=== PATIENT | male | born 1980 | race Caucasian/White ===

== ENCOUNTER 2020-01-25 19:20 | Emergency (ER) | payer OTHER ==
[~2020-01-25] VITALS: Ht 177.8 cm; Wt 77.1 kg
[2020-01-25 19:25] VITALS: Ht 177.8 cm; Wt 77.1 kg
[2020-01-25 20:37] VITALS: BP 142/97
== END 2020-01-25 20:37 | disposition other institution (70) ==
LOC: ED 19:20
DX: I10 Essential (primary) hypertension (principal); F15.10 Other stimulant abuse, uncomplicated; Z13.9 Encounter for screening, unspecified; Z98.890 Other specified postprocedural states

== ENCOUNTER 2020-01-25 19:20 | Emergency (ER) | payer OTHER | END 2020-01-25 20:37 | disposition other institution (70) | LOC: ED 19:20 | DX: Z02.89 Encounter for other administrative examinations (principal) ==

== ENCOUNTER 2020-01-29 12:22 | Emergency (ER) | payer OTHER ==
[~2020-01-29] VITALS: Ht 170.2 cm; Wt 65.8 kg
[2020-01-29 13:16] VITALS: Ht 170.2 cm; Wt 65.8 kg
[2020-01-29 13:47] LABS: BASOPHIL % 0.8 % (0-2); PLATELET COUNT 331 x10^3mcL (130-400); RED CELL DISTRIBUTION WIDTH 13.4 % (11.5-14.5)
[2020-01-29 14:01] LABS: CARBON DIOXIDE 22.8 mmol/L (21-32); CHLORIDE SERUM 104 mmol/L (98-107); CREATININE SERUM 0.9 mg/dL (0.7-1.3); GFR1 > 60 mL/min; GLUCOSE SERUM 88 mg/dL (74-106); POTASSIUM SERUM 3.3 mmol/L (3.5-5.1); SODIUM SERUM 138 mmol/L (136-145)
[2020-01-29 14:06] LABS: ALBUMIN 3.9 g/dL (3.4-5.0); ALKALINE PHOSPHATASE 91 U/L (46-116); ALT/SGPT 18 U/L (16-63); AST/SGOT 19 U/L (15-37); BILIRUBIN TOTAL 0.4 mg/dL (0.20-1.00); CHOLESTEROL 160 mg/dL (<200); TOTAL PROTEIN, SERUM 7.8 g/dL (6.4-8.2)
[2020-01-29 17:34] VITALS: BP 128/88
== END 2020-01-29 17:34 | disposition home or self-care (01) ==
LOC: ED 12:22
PROVIDERS: Emergency Medicine
DX: F10.129 Alcohol abuse with intoxication, unspecified (principal); R41.82 Altered mental status, unspecified; Z20.828 Contact with and (suspected) exposure to other viral communicable diseases; I10 Essential (primary) hypertension; Y90.0 Blood alcohol level of less than 20 mg/100 ml
CPT/HCPCS: G0480; J1630; J2250; J7030

== ENCOUNTER 2020-01-31 15:45 | Emergency (ER) | payer OTHER | END 2020-01-31 16:10 | disposition left against medical advice (07) | LOC: ED 15:45 | DX: Z53.21 Procedure and treatment not carried out due to patient leaving prior to being seen by health care provider (principal) ==

== ENCOUNTER 2020-02-07 20:27 | Emergency (ER) | payer OTHER ==
[~2020-02-07] VITALS: Ht 175.3 cm; Wt 72.6 kg
[2020-02-07 20:35] VITALS: Ht 175.3 cm; Wt 72.6 kg
[2020-02-07 22:53] LABS: CALCIUM 8.7 mg/dL (8.5-10.1); CARBON DIOXIDE 25.2 mmol/L (21-32); CHLORIDE SERUM 108 mmol/L (98-107); CREATININE SERUM 0.9 mg/dL (0.7-1.3); GFR1 > 60 mL/min; GLUCOSE SERUM 97 mg/dL (74-106); POTASSIUM SERUM 3.7 mmol/L (3.5-5.1); SODIUM SERUM 141 mmol/L (136-145)
[2020-02-07 22:57] LABS: ALBUMIN 3.7 g/dL (3.4-5.0); ALKALINE PHOSPHATASE 88 U/L (46-116); ALT/SGPT 20 U/L (16-63); AST/SGOT 16 U/L (15-37); BILIRUBIN TOTAL 0.44 mg/dL (0.20-1.00); TOTAL PROTEIN, SERUM 7.6 g/dL (6.4-8.2)
[2020-02-07 23:08] LABS: BASOPHIL % 0.5 % (0-2); PLATELET COUNT 284 x10^3mcL (130-400); RED CELL DISTRIBUTION WIDTH 12.9 % (11.5-14.5)
[2020-02-08 02:43] LABS: AMPHETAMINE QUAL UR POSITIVE (See below)
[2020-02-08 13:29] VITALS: BP 124/90
== END 2020-02-08 13:29 | disposition home or self-care (01) ==
LOC: ED 20:27
PROVIDERS: Student in an Organized Health Care Education/Training Program
DX: F15.959 Other stimulant use, unspecified with stimulant-induced psychotic disorder, unspecified (principal); R45.851 Suicidal ideations; I10 Essential (primary) hypertension; Z98.890 Other specified postprocedural states; Z20.828 Contact with and (suspected) exposure to other viral communicable diseases
CPT/HCPCS: G0480; J3490; U0003